=== PATIENT | female | born 1985 | race Hispanic/Latino ===

== ENCOUNTER 2018-12-03 09:11 | Emergency (ER) | payer OTHER | END 2018-12-03 15:37 | disposition home or self-care (01) | LOC: C.ER 09:11 | DX: R10.31 Right lower quadrant pain (principal) | CPT/HCPCS: 36415; 74177; 80053; 81001; 83690; 84703; 85025; 96361; 96374; 96375; 99285; C9113; J2405; J7030; Q9966; Q9967 ==